=== PATIENT | female | born 1935 | race Caucasian/White ===

== ENCOUNTER 2018-07-17 06:16 | Inpatient (IN) | payer BC, MEDICARE ==
--- NOTE | 2018-06-29 11:02 | ANES ---
Anesthesia Pre Procedure Eval HOME MEDICATIONS donepezil 10 mg tablet 10 mg PO HS #30 tab 06/08/18 [Last Taken Unknown] atorvastatin 10 mg tablet 10 mg PO HS #90 tab 06/23/18 [Last Taken Unknown] Allergies/Adverse Reactions: Allergies Allergy/AdvReac Type Severity Reaction Status Date / Time ciprofloxacin [From Cipro] AdvReac cold sweats Verified 06/28/18 08:28 nitrofurantoin AdvReac headache,em Verified 06/28/18 08:28 [From Macrobid] esis - Planned Procedure Planned Procedure: L Arthroplasty Total Knee Medication List Reviewed:: Yes Allergies Verified: Yes Medical History (Last Reviewed 06/29/18 @ 11:00 by Miguel Angel Nicole CRNA) Dementia Onset Date: Unknown Encounter for Zostavax administration Onset Date: 01/11/08 Essential hypertension Onset Date: Unknown Hypocholesterolemia Onset Date: Unknown Memory loss Onset Date: 06/10/15 Urinary tract infection Onset Date: Unknown Surgical History (Last Reviewed 06/29/18 @ 11:00 by Miguel Angel Nicole CRNA) History of cholecystectomy Onset Date: Unknown History of colonoscopy Onset Date: Unknown History of dilation and curettage Onset Date: Unknown History of hernia repair Onset Date: Unknown History of intestinal surgery Onset Date: Unknown S/P colonoscopic polypectomy Onset Date: 2003 Family History (Last Reviewed 06/29/18 @ 11:00 by Miguel Angel Nicole CRNA) Brother Cancer Diabetes Myocardial infarction Father Myocardial infarction Sister Myocardial infarction Mother Pulmonary embolism - Family Anesthesia History Family History:: no untoward family reactions to anesthesia, no familial bleeding tendencies, no family history of clotting disorders, no family history of premature - Airway/Neck/Teeth Within Normal Limits:: Yes Teeth Condition: Intact Mallampatti Score: 3 Thyromental (T-M) distance: > 6 cm Mandibulo Hyoid distance: > 3 cm - Respiratory Smoking Status: Never smoker Discussed smoking cessation including day of surgery: No Sleep Apnea currently treated: No Sleep Apnea by current assessment: No Discussed Risks/Treatment of ROSI: No - Cardiovascular Tolerates Activity: Poor Heart Sounds: S1 & S2, Regular - Anesthesia Assessment and Plan ASA Class: PS, III Anesthesia Type Plan: Block - Left ultrasound guided peripherl nerve block for postop analgesia, Spinal
[~2018-07-17 06:16] MED LIST: ROPIVACAINE HCL/PF 100 MG, EPINEPHrine 0.2 MG, KETOROLAC TROMETHAMINE 15 MG in NORMAL S... IJ PRN; TRANEXAMIC ACID 1,000 MG in NORMAL SALINE 100 ML IV PRN; ceFAZolin SODIUM 1 GM VIAL IV PRN
[2018-07-17] MEDS: RINGER'S SOLUTION,LACTATED 1,000 ML IV PRN ×3 (07:05→09:48)
[2018-07-17] MEDS ORDERED: MORPHINE SULFATE 2 MG/ML DISP.SYRIN IV PRN (09:43)
[2018-07-17] MEDS ORDERED: ONDANSETRON HCL/PF 2 MG/ML VIAL IV PRN (09:43)
[2018-07-17] MEDS ORDERED: MAG HYDROX/ALUMINUM HYD/SIMETH 30 ML UDC PO PRN (09:43)
[2018-07-17] MEDS ORDERED: ACETAMINOPHEN 500 MG TABLET PO PRN (09:43)
[2018-07-17] MEDS ORDERED: MAGNESIUM HYDROXIDE 30 ML UDC PO PRN (09:43)
--- NOTE | 2018-07-17 09:43 | OR ---
Operative Report - Dictated Report Narrative: Date: 07/17/2018 Preoperative diagnosis: Left Knee degenerative joint disease. Postoperative diagnosis: Left Knee degenerative joint disease. Procedure: Left Total knee arthroplasty. Surgeon: Lauri Quinones M.D. Lead Systems Analyst: Ke Clark PA-C Anesthesia: Spinal with regional block and local periarticular joint injection. Complications: None Specimens: Bone for disposal. Estimated blood loss: Minimal. Tourniquet time: 80 Minutes at 325 millimeters of mercury. Retained implants: Depuy Attune size 6 narrow left lugged cemented posterior stabilized femoral component. Size 5 fixed-bearing cemented tibial platform. 6 by 10 millimeter posterior stabilized cross-linked tibial insert. 38 millimeter medialized patella button. Indications: Mrs. Ragsdale is a 83-year-old female who has had long-standing left knee pain and arthrosis. This patient was followed in my clinic for period of time with significant complaints of left knee pain consistent with arthritic changes. She had failed conservative measures including, but not limited to, activity modification, passage of time, medications, and other conservative measures. Patient wished to proceed with surgical treatment. The risks, benefits, and alternatives were discussed in clinic. The risks of , blood clots, bleeding, infection, nerve/tendon blood vessel/ injury, malposition of components, intraoperative fracture, postoperative limited range of motion, persistent pain, failure of components, and need for additional procedures. Patient wished to proceed consent was obtained after answering all questions. Procedure: After marking the correct extremity on the floor, the patient was taken to the operating room. A timeout was performed. IV antibiotics consisting of Ancef were administered prior to the procedure. A regional followed by spinal anesthetic was induced by anesthesia, per my request, on the operative table with all bony prominences well-padded. Henson catheter was placed, and a bump was placed under the operative side buttock. SCDs and GREG hose were utilized on the nonoperative leg. A well-padded tourniquet was applied to the operative thigh. The operative leg was then pre-scrubbed with alcohol prepped, and draped in a standard sterile fashion. After exsanguinating the extremity with an Esmarch bandage, the tourniquet was inflated. After marking out the anterior knee for standard incision centered over the patella, the skin was incised and dissected down to the joint retinaculum. The joint retinaculum was marked out as well as the horizontal axis of the patella, and a standard medial parapatellar arthrotomy was then made. The most proximal aspect of the quadriceps tendon and the patella tendon insertion were protected from release. A partial synovectomy was performed as well as a resection of the infrapatellar fat pad. The distal femoral fat pad proximal to the trochlea was also resected using cautery. The soft tissues were elevated off the medial aspect of the proximal tibia using a Rehman elevator ensuring that we did not transect the medial collateral ligament. Upon initial evaluation range of motion was approximately 5 degrees to 120 degrees of flexion. There were signs of advanced arthrosis in the medial, lateral, and patellofemoral joint spaces. There were large marginal osteophytes which were removed with a rongeur. The knee was hyperflexed and the patella was tucked laterally. Protecting the surrounding soft tissues with Homans, an entry drill was placed down the femoral canal using Whitesides line for guidance into the entry point. The intramedullary femoral alignment ken was utilized in order to cut the distal femur in 5 degrees of valgus resecting 10 millimeters of bone. Next the distal femur was sized to a size 6. A posterior referencing guide was utilized to place the distal femoral cutting block in 3 degrees of external rotation. This was pinned into place. The rotation was confirmed both visually and based on anatomic landmarks. The 4 in 1 cutting jig of the appropriate size was utilized in order to make all bony cuts. The angle wing was used to ensure no notching. Retractors were utilized in order to protect surrounding soft tissues. This cut did not result in any excessive notching. We then cut the box centered over the distal femur. This allowed for resection of the anterior and posterior cruciate ligaments. I then turned my attention to the preparation of the tibia. Using an extra medullary tibial alignment ken, 2 millimeters of bone was resected off the medial articular surface. This was made perpendicular to the mechanical axis of the joint with the alignment ken centered over the ankle mortise. The alignment ken was checked and was noted to be parallel to the mechanical axis, centered over the medial one third of the tibial tubercle, paralleling the anterior surface of the tibia. We then turned our attention to the remaining meniscus and soft tissues. These were removed while protecting the surrounding ligaments and soft tissues. The marginal osteophytes off the anterior, posterior, medial, lateral aspects of the femur and tibia were removed. The tibia was sized out to a size 5. Next the tibia was drilled and punched in an externally rotated position. Next the trial femur and a series of tibial inserts were utilized in order to allow for full extension and maximal flexion. It was found that a 10 millimeter insert gave the best range of motion and stability at multiple flexion points as well as at full extension there was less than 2 mm of gapping both medially and laterally. There is minimal anterior translation with the knee at 90 degrees of flexion and no signs of being able to dislocate the knee. The patella was then prepared. The initial thickness was 21 millimeters. This was reamed down to 12 millimeters parallel to the anterior surface of the patella. It was sized out to a size 38 medialized patella button. This was then drilled and trialed. Without any medial restraint the patella tracked appropriately and did not sublux or dislocate. At this point, it was felt these were the appropriate sized implants, and all trials were removed. The standard periarticular joint injection consisting of ropivacaine, Toradol, and epinephrine were injected into the periarticular joint tissues. The bony surfaces were thoroughly irrigated with a pulsatile-suction saline irrigation device. A bone plug from the prior resected anterior chamfer cut was placed into the drill hole at the distal femur. The bony surfaces were then dried in preparation for placement of the implants. The cement was vacuum mixed per the motorcycle racer's instructions. The cement was placed on the dry bony surfaces and posterior aspect of the implants. The implants were impacted into place, removing all extruded cement. At this point anesthesia administered tranexamic acid per protocol intravenously. The knee was placed in extension with axial loading with the trial insert while the cement cured. Once the cement cured, all remaining extruded cement was removed. The knee was placed through a range of motion with the trial insert to ensure appropriate range of motion and stability. Final range of motion was approximately 0 to 120 degrees. The knee was again thoroughly irrigated with pulsatile saline lavage. The final polyethylene insert was then impacted into place ensuring no retained soft tissues. The remaining periarticular joint injection was injected. A medium Hemovac drain was placed exiting superior laterally. The knee was then placed over a triangle and the arthrotomy was closed with interrupted #1 Vicryl after thoroughly irrigating the joint. The deep and subcutaneous tissues were closed with interrupted 0 and 3-0 Vicryl respectively. Skin was closed with a running subcutaneous 3-0 Monocryl and Prineo Dermabond dressing. 4 x 4's, Sof-Rol, and a full leg Aristeo wrap were applied. All sponge, needle, blade, and instrument counts were correct prior to closing the wounds. Postoperative condition: The patient was awoken and transferred to the postanesthesia care unit in stable condition. Plan is to be admitted to the inpatient medical/surgical floor postoperatively for 24 hours of IV antibiotics, physical therapy, occupational therapy, and medical comanagement. Patient will be weightbearing as tolerated with range of motion as tolerated. DVT prophylaxis will be with SCDs, GREG hose, and pharmacological anticoagulation. Anticipated hospital stay is approximately 1-3 days.
--- NOTE | 2018-07-17 09:58 | ANES ---
Anesthesia Procedure Note Procedure Note: ANESTHESIA PROCEDURE NOTE Date of Procedure: 07/17/2018 Time of procedure: 7:55 AM. Performed by: Jorge Alvarado CRNA, MSN Auto Engine Mechanic: Elsa Pittman RN. Preprocedure diagnosis: Post left total knee arthroplasty. Post procedure diagnosis: Same. Procedure: Left Adductor Canal Block. Indications: Post left total knee arthroplasty pain relief. Findings: See below. Details of the procedure: The patient was brought to OR #4 and placed in supine position. The patient's left femoral area to the knee was prepped with chlorhexidine and using ultrasound guidance the left femoral artery and nerve was identified and then followed to the level of the adductor canal. Lidocaine 1% was infiltrated to the skin of the intended injection site. Under ultrasound guidance the saphenous nerve was approached with visualization of a 4 inch shielded block needle. Once saphenous nerve was identified with proximity to the needle tip, the saphenous nerve was surrounded with 20 mL bupivacaine 0.25% with 1-200,000 epinephrine. Please see radiology/ultrasound report for details and retained images of the procedure. EBL: 0 Fluids: N/A. Specimen: N/A. Post procedure condition: The patient tolerated the procedure well. No complications were noted. Thank you for this consultation. Jorge Alvarado CRNA, MSN
--- NOTE | 2018-07-17 09:59 | ANES ---
Post Anesthesia Discharge - Transfer of Care Transfer of Care handoff given to nurse: Yes - Discharge from PACU Discharge from PACU when meets criteria: Yes - Comfortable and awake.
[2018-07-17] MEDS: DEXTROSE 5%-LACTATED RINGERS 1,000 ML IV PRN ×2 (10:28→19:27)
[2018-07-17] MEDS: KETOROLAC TROMETHAMINE 15 MG/ML VIAL IV SCH ×3 (10:31→21:02)
[2018-07-17] MEDS: ceFAZolin SODIUM 1 GM in DEXTROSE 5 % IN WATER 50 ML IV SCH ×4 (11:22→16:45)
[2018-07-17] MEDS: oxyCODONE HCL/ACETAMINOPHEN 1 TAB TABLET PO PRN ×2 (11:49→21:01)
--- NOTE | 2018-07-17 12:22 | ANES ---
Post Anesthesia Assessment - Vital Signs Vitals: Last Vital Signs Temp 36.4 C 07/17/18 10:41 Pulse 77 07/17/18 11:41 Resp 16 07/17/18 11:41 BP 129/55 07/17/18 11:41 Pulse Ox 97 07/17/18 11:41 Airway Patency: Normal - Mental Status Level Of Consciousness: Awake, Alert - Pain Level Pain Score: 0 - N/V Assessment Nausea/Vomiting Presence: None Dehydration:: No
[2018-07-17] MEDS: SENNOSIDES/DOCUSATE SODIUM 1 TAB TABLET PO SCH (21:02)
[2018-07-18] MEDS: ceFAZolin SODIUM 1 GM in DEXTROSE 5 % IN WATER 50 ML IV SCH ×2 (00:09)
[2018-07-18] MEDS: KETOROLAC TROMETHAMINE 15 MG/ML VIAL IV SCH ×4 (03:48→22:09)
[2018-07-18 05:33] LABS: Anion Gap 8.4 mmol/L (6.8-13.8); BUN/Creatinine Ratio 9.4 (9.0-21.6); Calcium * 8.6 mg/dL (7.9-10.9); Carbon Dioxide 27.7 mmol/L (24-32.6); Potassium 4.1 mmol/L (3.4-4.6)
[2018-07-18 05:42] LABS: Hematocrit 31.9 % (37.0-47.0); Hemoglobin 10.8 gm/dL (12.5-16.0); Mean Cell Volume 93.3 fl (78-100); Mean Corpuscular Hemoglobin 31.6 pg (27-31); Mean Corpuscular Hgb Conc 33.9 g/dl (32-36); Mean Platelet Volume 12.3 fl (8-12.5); Platelet Count 123 K/mm3 (150-450); Red Blood Count 3.42 M/mm3 (4.2-5.4); Red Cell Distribution Width 14.5 % (11.5-14.0); White Blood Count 8.5 K/mm3 (4.0-10.5)
--- NOTE | 2018-07-18 08:12 | PN ---
Subjective - Date and Time Seen Date: 07/18/18 Time: 08:06 Subjective Narrative: Subjective: Reports mild pain and decreased appetite this morning. Was able to get to the chair with therapy. Pain is well-controlled. Voiding without any complications. Tolerating by mouth intake. Denies any nausea or vomiting. Denies calf pain. Slept well. Physical exam: Alert and oriented to person, place and time Left lower extremity: Palpable dorsalis pedis pulse. Sensation grossly intact to light touch. Dressings clean and dry. Able to flex and extend ankle and toes. No excessive drainage. Calf and thigh are soft and nontender. Assessment: Postop day 1 status post left total hip arthroplasty. Plan: Due to the need for pain control, post-operative limited mobility, protection of the surgical site and joint, monitoring of the wound, and the management of manager strategy & account randa medical conditions, she requires continued inpatient care. Continue with physical and occupational therapy weightbearing as tolerated. Continue with anticoagulation. 24 hours postoperative prophylactic antibiotics. Pain control with goal to rely on oral medications. Continue bowel regimen. Will need 6 weeks with walker or assitive device to protect joint while ambulating during the recovery process. Discharge planning -due to her home living situation as well as her lack of full-time home assistance she is electing to pursue [facility]. We will look at transfer once she meets the Medicare required 3 midnights.. Discontinue drain and Henson catheter. Objective - Vitals Vitals: Last Vital Signs Temp 37.4 C 07/18/18 06:22 Pulse 60 07/18/18 06:22 Resp 20 07/18/18 06:22 BP 122/63 07/18/18 06:22 Pulse Ox 97 07/18/18 06:22 - Abnormal Lab Findings Abnormal Lab Findings: Abnormal Lab Results 07/18/18 07/18/18 Range/Units 05:10 05:10 RBC 3.42 L (4.2-5.4) M/mm3 Hgb 10.8 L (12.5-16.0) gm/dL Hct 31.9 L (37.0-47.0) % MCH 31.6 H (27-31) pg RDW 14.5 H (11.5-14.0) % Plt Count 123 L (150-450) K/mm3 Random Glucose 111 H (70-110) mg/dL - Exam Constitutional: Present: Alert, Oriented x3 Cauti Physician Documentation - Urinary Catheter Management Urethral (Henson) Date of Insertion: 07/17/18 Time of Insertion: 08:15 Assessment/Plan - Problems/Diagnosis (1) S/P total knee arthroplasty Problem: Acute Qualifiers: Laterality: left Qualified Code(s): Z96.652 - Presence of left artificial knee joint (2) Acute blood loss anemia Problem: Acute (3) Hyperlipidemia Problem: Chronic
[2018-07-18] MEDS: ENOXAPARIN SODIUM 40 MG/0.4 ML SYRG SC SCH (08:54)
--- NOTE | 2018-07-18 12:32 | PN ---
Subjective - Date and Time Seen Date: 07/18/18 Time: 12:29 Subjective Narrative: Lara reports no appetite, otherwise doing well. Denies nausea. reports pain is controlled. She has some confusion but this is near her baseline. Objective - Vitals Vitals: Last Vital Signs Temp 36.6 C 07/18/18 10:27 Pulse 62 07/18/18 10:27 Resp 20 07/18/18 10:27 BP 138/52 07/18/18 10:27 Pulse Ox 96 07/18/18 10:27 - Abnormal Lab Findings Abnormal Lab Findings: Abnormal Lab Results 07/18/18 07/18/18 Range/Units 05:10 05:10 RBC 3.42 L (4.2-5.4) M/mm3 Hgb 10.8 L (12.5-16.0) gm/dL Hct 31.9 L (37.0-47.0) % MCH 31.6 H (27-31) pg RDW 14.5 H (11.5-14.0) % Plt Count 123 L (150-450) K/mm3 Random Glucose 111 H (70-110) mg/dL - Exam Constitutional: Present: Alert, Cooperative ENT Exam: Present: hearing grossly normal Respiratory: Present: lungs clear, normal breath sounds, no respiratory distress Cardiovascular/Chest: Present: regular rate, rhythm, no murmur Abdomen: Present: Normal bowel sounds, soft, nontender, nondistended Skin Exam: Present: normal color, warm/dry, no cyanosis Appearance: Present: appropriate appearance Eye contact: Present: cooperative, good eye contact, normal speech Cauti Physician Documentation - Urinary Catheter Management Urethral (Henson) Date of Insertion: 07/17/18 Time of Insertion: 08:15 Assessment/Plan - Problems/Diagnosis (1) S/P total knee arthroplasty Problem: Acute Qualifiers: Laterality: left Qualified Code(s): Z96.652 - Presence of left artificial knee joint Narrative: Medically doing well, no concerns POD #1 (2) Acute blood loss anemia Problem: Acute Narrative: Mild, will monitor. No need for transfusion at this time. (3) Dementia Problem: Chronic Narrative: Near baseline, mild confusion and memory impairment.
[2018-07-18] MEDS: ROSUVASTATIN CALCIUM 10 MG TABLET PO SCH (19:59)
[2018-07-18] MEDS: SENNOSIDES/DOCUSATE SODIUM 1 TAB TABLET PO SCH (20:00)
[2018-07-18] MEDS: DONEPEZIL HCL 10 MG TABLET PO SCH (20:00)
[2018-07-18] MEDS: oxyCODONE HCL/ACETAMINOPHEN 1 TAB TABLET PO PRN (22:34)
[2018-07-19] MEDS: oxyCODONE HCL/ACETAMINOPHEN 1 TAB TABLET PO PRN ×2 (03:26→22:38)
[2018-07-19] MEDS: KETOROLAC TROMETHAMINE 15 MG/ML VIAL IV SCH (03:28)
[2018-07-19] MEDS: ENOXAPARIN SODIUM 40 MG/0.4 ML SYRG SC SCH (10:07)
--- NOTE | 2018-07-19 12:27 | PN ---
Subjective - Date and Time Seen Date: 07/19/18 Time: 12:26 Subjective Narrative: Subjective: Reports no pain and improved appetite this morning. Was able to walk in the guajardo with therapy. Pain is well-controlled. Voiding without any complications. Tolerating by mouth intake. Denies any nausea or vomiting. Denies calf pain. Slept well. Physical exam: Alert and oriented to person, place and time Left lower extremity: Palpable dorsalis pedis pulse. Sensation grossly intact to light touch. Dressings clean and dry. Able to flex and extend ankle and toes. No excessive drainage. Calf and thigh are soft and nontender. Assessment: Postop day 2 status post left total hip arthroplasty. Plan: Due to the need for pain control, post-operative limited mobility, protection of the surgical site and joint, monitoring of the wound, and the management of chronic medical conditions, she requires continued inpatient care. Continue with physical and occupational therapy weightbearing as tolerated. Continue with anticoagulation. Pain control with goal to rely on oral medications. Continue bowel regimen. Will need 6 weeks with walker or assitive device to protect joint while ambulating during the recovery process. Discharge planning -due to her home living situation as well as her lack of full-time home assistance she is electing to pursue retirement. We will look at transfer once she meets the Medicare required 3 midnights. Objective - Vitals Vitals: Last Vital Signs Temp 36.9 C 07/19/18 03:00 Pulse 61 07/19/18 06:37 Resp 16 07/19/18 06:37 BP 146/61 07/19/18 06:37 Pulse Ox 95 07/19/18 03:00 Cauti Physician Documentation - Urinary Catheter Management Urethral (Henson) Date of Insertion: 07/17/18 Time of Insertion: 08:15 Assessment/Plan - Problems/Diagnosis (1) S/P total knee arthroplasty Problem: Acute Qualifiers: Laterality: left Qualified Code(s): Z96.652 - Presence of left artificial knee joint (2) Acute blood loss anemia Problem: Acute (3) Hyperlipidemia Problem: Chronic
[2018-07-19] MEDS: SENNOSIDES/DOCUSATE SODIUM 1 TAB TABLET PO SCH (20:09)
[2018-07-19] MEDS: DONEPEZIL HCL 10 MG TABLET PO SCH (20:10)
[2018-07-19] MEDS: ROSUVASTATIN CALCIUM 10 MG TABLET PO SCH (20:10)
[2018-07-20] MEDS: oxyCODONE HCL/ACETAMINOPHEN 1 TAB TABLET PO PRN (03:35)
--- NOTE | 2018-07-20 07:59 | DS ---
(1) S/P total knee arthroplasty Problem: Acute Qualifiers: Laterality: left Qualified Code(s): Z96.652 - Presence of left artificial knee joint (2) Acute blood loss anemia Problem: Acute (3) Hyperlipidemia Problem: Chronic (4) Dementia Problem: Chronic Description of Stay: Mrs. Ragsdale was admitted to the floor after undergoing left total knee arthroplasty. Tolerated this well. Was admitted to the floor postoperatively for 24 hours of IV antibiotics, pain control, medical comanagement, and occupational and physical therapy. OT and PT were consulted to assist with activities of daily living and ambulation. Was made weightbearing as tolerated with range of motion as tolerated. Pain was initially controlled with IV regimen. This was transitioned to oral once tolerating a by mouth intake. Was resumed on home diet and medications. Had a Henson catheter inserted and the operating room which was discontinued on postoperative day 1. A drain was placed intraoperatively into the knee which was discontinued on postoperative day 1. Lovenox SCD and GREG hose were utilized for DVT prophylaxis. Vital signs remained stable to the hospital course. Serial labs were obtained which showed a final hemoglobin of 10.8 grams. BMP was reviewed and was stable. Physical examination throughout the hospital course showed an extremity that had sensation that was intact to light touch, palpable pulses, a benign wound, motor intact to the toes, ankle, and knee. Knee range of motion was approximately 5 degrees to 60 degrees. this in her home living situation as well as the fact that she was slow to progress with therapy she is being discharged to nursing facility for continued skilled therapy. Instructions: Continue with weightbearing as tolerated and range of motion as tolerated. It is okay to shower and get the wound wet as long as there is no drainage from the wound. Do not soak the wound. If there is any drainage from the wound keep the wound clean and dry and cover with dry gauze and tape. Change every 2-3 days as needed if there is any drainage. Cover wound while showering if there is any drainage. Continue with physical therapy and occupational therapy. Resume home diet. Report any fever over 101.5 Fahrenheit, uncontrolled pain, increased drainage, foul odor of drainage, new or increased calf pain or shortness of breath, or any other significant complaints. A 325mg dialy aspirin will be started after finishing anticoagulation if not allergic. Continue with GREG hose on the operative extremity until instructed otherwise. No driving until instructed otherwise. Follow up in approximately 10-14 days. Procedures Performed: see notes below List Procedures: Left total knee arthroplasty Results and Findings: Lab Pending Results 07/18/18 05:10: WBC 8.5, RBC 3.42 L, Hgb 10.8 L, Hct 31.9 L, MCV 93.3, MCH 31.6 H, MCHC 33.9, RDW 14.5 H, Plt Count 123 L, MPV 12.3 07/18/18 05:10: Sodium 136, Plasma Sodium 136, Potassium 4.1, Chloride 104, Carbon Dioxide 27.7, Anion Gap 8.4, BUN 8, Creatinine 0.85, Est GFR (Non-Af Amer) 68 D, BUN/Creatinine Ratio 9.4, Random Glucose 111 H, Calcium 8.6 Disposition: SNF Condition: Good Discharge Activity: Activity as tolerated, Weight bearing Discharge Diet: General/regular food Custodial Therapy: Physicial Therapy, Occupation Therapy Referrals: Williams Echeverria DO [Primary Care Provider] - Additional Patient Instructions (free text): Dr Quinones follow up Orthopedic appt. on Tuesday at 9:45am. [facility] post op with PT and OT to evaluate and treat. Prescriptions (Any new or edited meds): Enoxaparin Sodium [Lovenox] 40 mg SC Q24H #7 disp.syrin oxyCODONE HCL/ACETAMINOPHEN [Percocet 5 MG/325 MG] 1 tab PO Q3H PRN #40 tablet PRN Reason: Moderate Pain (Pain Scale 4-6) Complete Home Medications List: Complete Home Medication List: donepezil 10 mg tablet 10 mg PO HS #30 tab 06/08/18 atorvastatin 10 mg tablet 10 mg PO HS #90 tab 06/23/18 Enoxaparin Sodium [Lovenox] 40 mg SC Q24H #7 disp.syrin 07/20/18 Sennosides/Docusate Sodium [Senokot-S] 2 tab PO HS tablet 07/20/18 oxyCODONE HCL/ACETAMINOPHEN [Percocet 5 MG/325 MG] 1 tab PO Q3H PRN #40 tablet 07/20/18
[2018-07-20] MEDS: ENOXAPARIN SODIUM 40 MG/0.4 ML SYRG SC SCH (08:24)
[2018-07-20 09:44] VITALS: BP 145/62
== END 2018-07-20 10:00 | DRG 470 ==
LOC: MS 06:16 → EDSTATUS 08:00 → MS 09:19
PROVIDERS: ADMIT Orthopaedic Surgery; ATTEND Orthopaedic Surgery
CPT/HCPCS: 36415; 73560; 80048; 85027; 97110; 97116; 97162; 97165; 97535